=== PATIENT | male | born 1970 | race Caucasian/White ===

== ENCOUNTER → 2020-09-25 | Outpatient (CLI) | payer BC ==
[~2020-09-25] MED LIST: MULTIVITAMINS1 EAC1 PO; TESSALON PERLE100 MG PO
== END ==
LOC: LAB 08:54
DX: D89.89 Other specified disorders involving the immune mechanism, not elsewhere classified (principal); M25.50 Pain in unspecified joint; R76.0 Raised antibody titer; R70.0 Elevated erythrocyte sedimentation rate
CPT/HCPCS: 36415; 85652; 86140

== ENCOUNTER 2020-12-10 04:35 | Emergency (ER) | payer BC | END 2020-12-10 06:40 | disposition home or self-care (01) | LOC: ER1 04:35 | DX: J39.9 Disease of upper respiratory tract, unspecified (principal); B34.9 Viral infection, unspecified; I10 Essential (primary) hypertension; E03.9 Hypothyroidism, unspecified; F17.210 Nicotine dependence, cigarettes, uncomplicated; Z20.822 Contact with and (suspected) exposure to COVID-19 | CPT/HCPCS: 0240U; 99283 ==

== ENCOUNTER → 2021-01-07 | Outpatient (CLI) | payer BC ==
[2021-01-07 09:34] LABS: HEMOGLOBIN 16.7 gm/dl (14.0-17.5); RED BLOOD COUNT 5.21 M/UL (4.20-5.50); WHITE BLOOD COUNT 10.2 K/UL (4.5-11.0)
[2021-01-07 10:07] LABS: BUN/CREATININE RATIO 17 (0-10)
[2021-01-08 08:13] LABS: THYROXINE (T4) 10.7 ug/dL (4.5-12.0)
== END ==
LOC: LAB 08:56
PROVIDERS: Nurse Practitioner
DX: Z12.5 Encounter for screening for malignant neoplasm of prostate (principal); E05.90 Thyrotoxicosis, unspecified without thyrotoxic crisis or storm; R73.9 Hyperglycemia, unspecified
CPT/HCPCS: 36415; 80053; 80061; 83036; 84153; 84436; 84443; 84480; 85025

== ENCOUNTER 2021-02-12 21:45 | Emergency (ER) | payer BC ==
[2021-02-13 02:41] LABS: HEMOGLOBIN 17.2 gm/dl (14.0-17.5); RED BLOOD COUNT 5.23 M/UL (4.20-5.50); WHITE BLOOD COUNT 8.9 K/UL (4.5-11.0)
[2021-02-13 03:01] LABS: BUN/CREATININE RATIO 17 (0-10)
== END 2021-02-13 04:33 | disposition home or self-care (01) ==
LOC: ER1 21:45
PROVIDERS: Physician Assistant
DX: R51.9 Headache, unspecified (principal); R42 Dizziness and giddiness; I10 Essential (primary) hypertension; F17.210 Nicotine dependence, cigarettes, uncomplicated
CPT/HCPCS: 70450; 71045; 80053; 82550; 82553; 83874; 83880; 84484; 85025; 85610; 85730; 93005; 99284